=== PATIENT | female | born 1985 | race Caucasian/White ===

== ENCOUNTER 2025-02-13 07:56 | Outpatient (CLI) | payer BC | END 2025-02-13 07:57 | disposition home or self-care (01) | LOC: CSHMAMMO 07:56 | PROVIDERS: ATTEND Student in an Organized Health Care Education/Training Program | DX: Z12.31 Encounter for screening mammogram for malignant neoplasm of breast (principal); Z80.3 Family history of malignant neoplasm of breast; Z98.82 Breast implant status | CPT/HCPCS: 77063; 77067 ==

== ENCOUNTER 2025-02-16 13:20 | Outpatient (CLI) | payer BC | END 2025-02-16 13:21 | disposition home or self-care (01) | LOC: CSHMRI 13:20 | PROVIDERS: ATTEND Student in an Organized Health Care Education/Training Program | DX: T85.43XA Leakage of breast prosthesis and implant, initial encounter (principal) | CPT/HCPCS: 77047 ==